=== PATIENT | female | born 1945 | race African-American/Black ===

== ENCOUNTER → 2016-12-15 | Outpatient (CLI) | payer MEDICARE, OTHER ==
[2016-04-18 12:38] VITALS: BP 150/70
[~2016-12-15] MED LIST: AMLO10TA2 PO; ASPI81TA2 PO; ESOM20CA30 PO; GABA-586 PO; LEVO500T38 PO; LISI-338 PO; TRAZ100T12 PO
--- NOTE | 2016-12-15 13:32 | RAD ---
INDICATION: Chronic kidney disease with history of right nephrectomy COMPARISON: 04/14/2016 TECHNIQUE: Grayscale and color ultrasound images obtained of the bilateral kidneys and bladder. FINDINGS: Right Kidney: Removed Left Kidney: 14.3 cm. 17 mm upper pole cyst. Mild distention left renal pelvis. Bladder: No gross abnormality. Abdominal aorta measures up to about 2 cm in visualized portions. Abdominal aorta peak systolic velocity 77 cm/S. Left renal artery peak systolic velocity 105 cm/S with a ratio of 1.4. Vascular flow in the partially visualized left renal vein. IMPRESSION: Mild distention of left renal pelvis without significant hydronephrosis There is a probable cyst within the left kidney.
== END | disposition home or self-care (01) ==
LOC: US 12:02
PROVIDERS: ATTEND Internal Medicine Nephrology
DX: Z90.5 Acquired absence of kidney (principal); I10 Essential (primary) hypertension; E11.9 Type 2 diabetes mellitus without complications; N18.2 Chronic kidney disease, stage 2 (mild)
CPT/HCPCS: 76770

== ENCOUNTER 2017-04-30 10:53 | Observation (INO) | payer OTHER ==
[~2017-04-30] VITALS: Ht 175.3 cm; Wt 91.2 kg
[~2017-04-30 10:53] MED LIST changes: +ASPI-630 PO; -ASPI81TA2 PO; -LEVO500T38 PO; +LEVO500T59 PO
--- NOTE | 2017-04-30 11:17 | PHYS DOC ---
Past Medical History Past Medical History: Diabetes-Type II, Hypertension, Renal Disease Past Surgical History: Other Additional Past Surgical Histo: nephrectomy Alcohol Use: None Drug Use: None Adult General Chief Complaint Chief Complaint: Neck Pain HPI HPI Patient is a 71 year old female who presents with left-sided neck pain. She states that pain started around 4 days ago and then last night got worse. She states it was around her entire collarbone and now is more localized on the left sternocleidomastoid area. She states she got this morning and then she started feeling lightheaded and dizzy. She also is having some discomfort in her right shoulder this been going on for over the last 5-7 days. She denies any chest pain, shortness of breath. She did feel lightheaded and dizzy this morning but denies any passing out or syncopal episodes. Review of Systems Review of Systems Constitutional: Denies fever or chills [] Eyes: Denies change in visual acuity, redness, or eye pain [] HENT: Denies nasal congestion or sore throat [] Respiratory: Denies cough or shortness of breath [] Cardiovascular: No additional information not addressed in HPI [] GI: Denies abdominal pain, nausea, vomiting, bloody stools or diarrhea [] : Denies dysuria or hematuria [] Musculoskeletal: Denies back pain or joint pain [] Integument: Denies rash or skin lesions [] Neurologic: Denies headache, focal weakness or sensory changes [] Endocrine: Denies polyuria or polydipsia [] Current Medications Current Medications Current Medications Medications (Trade) Dose Ordered Sig/[facility] Start Time Stop Time Status Last Admin Dose Admin Aspirin (Carole Aspirin) 325 mg 1X ONCE 04/30/17 14:30 04/30/17 14:31 Allergies Allergies Allergies Coded Allergies Type Severity Reaction Last Updated Verified Penicillins Allergy Intermediate 03/01/16 Yes Physical Exam Physical Exam Constitutional: Well developed, well nourished, no acute distress, non-toxic appearance. [] HENT: Normocephalic, atraumatic, bilateral external ears normal, oropharynx moist, no oral exudates, nose normal. [] Eyes: PERRLA, EOMI, conjunctiva normal, no discharge. [] Neck: Normal range of motion, mild tenderness over the left sternocleidomastoid muscle, no midline tenderness or step-offs noted, supple, no stridor. [] Cardiovascular:Heart rate regular rhythm, no murmur [] Lungs & Thorax: Bilateral breath sounds clear to auscultation [] Abdomen: Bowel sounds normal, soft, no tenderness, no masses, no pulsatile masses. [] Skin: Warm, dry, no erythema, no rash. [] Back: No tenderness, no CVA tenderness. [] Extremities: No tenderness, no cyanosis, no clubbing, ROM intact, no edema. [] Neurologic: Alert and oriented X 3, normal motor function, normal sensory function, no focal deficits noted. [] Psychologic: Affect normal, judgement normal, mood normal. [] Current Patient Data Vital Signs Vital Signs Date Time Temp Pulse Resp B/P (MAP) Pulse Ox O2 Delivery O2 Flow Rate FiO2 04/30/17 11:00 98.1 75 18 134/69 (90) 98 Room Air 98.1 Lab Values Laboratory Tests Test 04/30/17 12:00 04/30/17 13:30 White Blood Count 7.2 x10^3/uL (4.0-11.0) Red Blood Count 4.23 x10^6/uL (3.50-5.40) Hemoglobin 11.7 g/dL (12.0-15.5) L Hematocrit 37.1 % (36.0-47.0) Mean Corpuscular Volume 88 fL (79-100) Mean Corpuscular Hemoglobin 28 pg (25-35) Mean Corpuscular Hemoglobin Concent 32 g/dL (31-37) Red Cell Distribution Width 14.6 % (11.5-14.5) H Platelet Count 175 x10^3/uL (140-400) Neutrophils (%) (Auto) 50 % (31-73) Lymphocytes (%) (Auto) 37 % (24-48) Monocytes (%) (Auto) 7 % (0-9) Eosinophils (%) (Auto) 6 % (0-3) H Basophils (%) (Auto) 1 % (0-3) Neutrophils # (Auto) 3.6 x10^3uL (1.8-7.7) Lymphocytes # (Auto) 2.6 x10^3/uL (1.0-4.8) Monocytes # (Auto) 0.5 x10^3/uL (0.0-1.1) Eosinophils # (Auto) 0.4 x10^3/uL (0.0-0.7) Basophils # (Auto) 0.1 x10^3/uL (0.0-0.2) Prothrombin Time 13.7 SEC (11.7-14.0) Prothrombin Time INR 1.1 (0.8-1.1) Sodium Level 141 mmol/L (136-145) Potassium Level 4.1 mmol/L (3.5-5.1) Chloride Level 107 mmol/L (98-107) Carbon Dioxide Level 24 mmol/L (21-32) Anion Gap 10 (6-14) Blood Urea Nitrogen 16 mg/dL (7-20) Creatinine 1.3 mg/dL (0.6-1.0) H Estimated GFR (Cockcroft-Gault) 48.7 Glucose Level 193 mg/dL (70-99) H Calcium Level 8.8 mg/dL (8.5-10.1) Magnesium Level 2.0 mg/dL (1.8-2.4) Total Bilirubin 0.1 mg/dL (0.2-1.0) L Direct Bilirubin < 0.1 mg/dL (0.0-0.2) Aspartate Amino Transferase (AST) 19 U/L (15-37) Alanine Aminotransferase (ALT) 26 U/L (14-59) Alkaline Phosphatase 148 U/L (46-116) H Creatine Kinase 203 U/L (26-192) H Creatine Kinase MB (Mass) 1.7 ng/mL (0.0-3.6) Creatine Kinase MB Relative Index 0.8 % (0-4) Troponin I Quantitative < 0.017 ng/mL (0.000-0.055) IZ-Lce-U-Type Natriuretic Peptide 76 pg/mL (0-124) Total Protein 7.1 g/dL (6.4-8.2) Albumin 3.5 g/dL (3.4-5.0) Lipase 79 U/L (73-393) Thyroid Stimulating Hormone (TSH) 0.885 uIU/mL (0.358-3.74) Urine Collection Type Unknown Urine Color Yellow Urine Clarity Clear Urine pH 6.0 Urine Specific [place] 1.020 Urine Protein Negative mg/dL (NEG-TRACE) Urine Glucose (UA) 100 mg/dL (NEG) Urine Ketones (Stick) Negative mg/dL (NEG) Urine Blood Negative (NEG) Urine Nitrite Negative (NEG) Urine Bilirubin Negative (NEG) Urine Urobilinogen Dipstick 1.0 mg/dL (0.2 mg/dL) Urine Leukocyte Esterase Negative (NEG) Urine RBC Occ /HPF (0-2) Urine WBC Occ /HPF (0-4) Urine Squamous Epithelial Cells Mod /LPF Urine Bacteria Many /HPF (0-FEW) Urine Mucus Mod /LPF Urine Opiates Screen Neg (NEG) Urine Methadone Screen Neg (NEG) Urine Barbiturates Neg (NEG) Urine Phencyclidine Screen Neg (NEG) Urine Amphetamine/Methamphetamine Neg (NEG) Urine Benzodiazepines Screen Neg (NEG) Urine Cocaine Screen Neg (NEG) Urine Cannabinoids Screen Neg (NEG) Urine Ethyl Alcohol Neg (NEG) Laboratory Tests 04/30/17 12:00 Laboratory Tests 04/30/17 12:00 EKG EKG EKG shows sinus rhythm rate of 64 bpm with T-wave inversions in aVL, V5 V6, no ST elevations appreciated, left axis deviation, QTC 423 ms, as interpreted by me. Radiology/Procedures Radiology/Procedures [facility] [address] [place] [address] IMAGING REPORT Signed PATIENT: ROSIBEL FERREIRA ACCOUNT: [id number] : 1945 LOCATION: ER AGE: 71 SEX: F EXAM STATUS: REG ER ORD. PHYSICIAN: RAMSEY EDWARDS MD REASON: dizziness 16 PROCEDURE: PORTABLE CHEST 1V Indication: Dizziness and pain. Time of exam left 40 7:00 AM Correlation is made with prior study from 04/15/2016. FINDINGS: The heart size is normal. The lungs are clear. No pleural effusion or pneumothorax is identified. The pulmonary vascularity is normal. IMPRESSION: No acute abnormality detected. DICTATED and SIGNED BY: MILLIE DO MD DATE: 04/30/17 1213 CC: RAMSEY EDWARDS MD; NON,STAFF ~ Impressions: Right shoulder/chest pain Dizziness Left-sided neck strain Diabetes Course & Med Decision Making Course & Med Decision Making Pertinent Labs and Imaging studies reviewed. (See chart for details) Patient labs do not show any acute abnormality she does have new T-wave inversions in the lateral leads on her EKG. We'll admit and start aspirin, interim orders with cardiology consultation. His having intermittent dizziness without any vertigo type symptoms. She is able to ambulate without any difficulty. She is agreeable plans in stable condition this time. Dragon Disclaimer Dragon Disclaimer This electronic medical record was generated, in whole or in part, using a voice recognition dictation system. Departure Departure Impression: Primary Impression: Dizziness Disposition: 09 ADMITTED INPATIENT Admitting Physician: Nadia Schwarz Condition: STABLE Referrals: NON,STAFF (PCP) RAMSEY EDWARDS MD Apr 30, 2017 11:16
--- NOTE | 2017-04-30 12:14 | EKG ---
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
--- NOTE | 2017-04-30 12:16 | RAD ---
Indication: Dizziness and pain. Time of exam left 40 7:00 AM Correlation is made with prior study from 04/15/2016. FINDINGS: The heart size is normal. The lungs are clear. No pleural effusion or pneumothorax is identified. The pulmonary vascularity is normal. IMPRESSION: No acute abnormality detected.
[2017-04-30 12:17] LABS: BASO # 0.1 x10^3/uL (0.0-0.2); BASO % 1 % (0-3); EOS % 6 % (0-3); HEMATOCRIT 37.1 % (36.0-47.0); HEMOGLOBIN 11.7 g/dL (12.0-15.5); LYMPH # 2.6 x10^3/uL (1.0-4.8); LYMPH % 37 % (24-48); MEAN CORPUSCULAR HEMOGLOBIN 28 pg (25-35); MEAN CORPUSCULAR HGB CONC 32 g/dL (31-37); MEAN CORPUSCULAR VOLUME 88 fL (79-100); MONO % 7 % (0-9); NEUT % 50 % (31-73); PLATELET COUNT 175 x10^3/uL (140-400); RED BLOOD COUNT 4.23 x10^6/uL (3.50-5.40); RED CELL DISTRIBUTION WIDTH 14.6 % (11.5-14.5); WHITE BLOOD COUNT 7.2 x10^3/uL (4.0-11.0)
[2017-04-30 12:26] LABS: INR 1.1 (0.8-1.1); PROTHROMBIN TIME PATIENT 13.7 SEC (11.7-14.0)
[2017-04-30 12:31] LABS: ANION GAP 10 (6-14); BLOOD UREA NITROGEN 16 mg/dL (7-20); CALCIUM 8.8 mg/dL (8.5-10.1); CARBON DIOXIDE 24 mmol/L (21-32); CHLORIDE 107 mmol/L (98-107); CREATININE 1.3 mg/dL (0.6-1.0); GFR 48.7; GLUCOSE 193 mg/dL (70-99); POTASSIUM 4.1 mmol/L (3.5-5.1); SODIUM 141 mmol/L (136-145)
[2017-04-30 12:38] LABS: ALBUMIN 3.5 g/dL (3.4-5.0); ALK PHOS 148 U/L (46-116); ALT (SGPT) 26 U/L (14-59); AST (SGOT) 19 U/L (15-37); DIRECT BILIRUBIN < 0.1 mg/dL (0.0-0.2); TOTAL BILIRUBIN 0.1 mg/dL (0.2-1.0); TOTAL PROTEIN 7.1 g/dL (6.4-8.2)
[2017-04-30 13:02] LABS: CKMB MASS 1.7 ng/mL (0.0-3.6)
[2017-04-30 13:47] LABS: BILIRUBIN,URINE NEGATIVE (NEG); GLUCOSE,URINE 100 mg/dL (NEG); NITRITE,URINE NEGATIVE (NEG); PROTEIN,URINE NEGATIVE (NEG-TRACE)
[2017-04-30 14:11] LABS: BACTERIA,URINE MANY /HPF (0-FEW); RBC,URINE OCC /HPF (0-2); SQUAMOUS EPITHELIAL CELL,UR MOD /LPF; WBC,URINE OCC /HPF (0-4)
[2017-04-30 14:23] LABS: BARBITURATES NEG (NEG); BENZODIAZEPINES NEG (NEG); CANNABINOIDS NEG (NEG); COCAINE NEG (NEG); METHADONE NEG (NEG); OPIATES NEG (NEG); PHENCYCLIDINE NEG (NEG)
[2017-04-30] MEDS ORDERED: ONDANSETRON PF 4 MG/2 ML VIAL. IV PRN (14:30)
[2017-04-30] MEDS ORDERED: ASPIRIN 325 MG TABLET PO ONE (14:30)
--- NOTE | 2017-04-30 14:56 | PDOC2 ---
DIANNA LUDWIG ROBOTIC WELDER 04/30/17 1456: CARDIAC CONSULT DATE OF CONSULT Date of Consult DATE: 04/30/17 TIME: 14:47 REASON FOR CONSULT Reason for Consult: Chest pain REFERRING PHYSICIAN Referring Physician: Dr. Heredia SOURCE Source: Chart review, Patient HISTORY OF PRESENT ILLNESS HISTORY OF PRESENT ILLNESS This is a pleasant 71 yo female who presented with complaint of left-sided neck pain and right shoulder pain. Patient reports symptoms have been ongoing for the last 4-5 days. Pain so severe it will awaken her from sleep. Describes as throbbing in nature. Worsened significantly by movement. Neck pain radiates upward to the head. Associated with PATRICK. Left shoulder pain seems to radiated down her left arm. This morning, pain much worse and was associated with dizziness, so she came into the ED for further evaluation and treatment. Denies any chest pain, palpitations, SOA, diaphoresis, or n/v. No cardiac history other than hypertension. No previous cardiac workup. Labs noted. Trop negative. EKG shows SR with t-wave inversion of lateral leads suggesting ischemia, which is consistent with study conducted 04/04/16. PAST MEDICAL HISTORY Cardiovascular: HTN Pulmonary: COPD GI: GERD Heme/Onc: No pertinent hx Hepatobiliary: No pertinent hx Psych: No pertinent hx Musculoskeletal: Osteoarthritis Renal/: Renal Ca. (s/p nephrectomy ) Endocrine: Diabetes Dermatology: No pertinent hx PAST SURGICAL HISTORY Past Surgical History: Tubal Ligation, Other (see PMH) FAMILY HISTORY Family History: Diabetes, Hypertension SOCIAL HISTORY Smoke: No ALCOHOL: none Drugs: None Lives: Alone ALLERGIES ALLERGIES: Coded Allergies: Penicillins (Verified Allergy, Intermediate, 03/01/16) ROS Review of System 14 point ROS conducted with pertinent positives noted above in HPI. PHYSICAL EXAM General: Alert, Oriented X3, Cooperative HEENT: Atraumatic, Mucous membr. moist/pink Lungs: Clear to auscultation Heart: Regular rate, Normal S1, Normal S2 Abdomen: No tenderness Extremities: No edema, Normal pulses Skin: No breakdown, No significant lesion Neuro: Normal speech, Sensation intact Psych/Mental Status: Mental status NL, Mood NL MUSCULOSKELETAL: Other (right shoulder joint tenderness. pain with active ROM on neck and right shoulder ) VITALS VITALS Vital Signs Date Time Temp Pulse Resp B/P (MAP) Pulse Ox O2 Delivery O2 Flow Rate FiO2 6/29/17 11:00 98.1 75 18 134/69 (90) 98 Room Air 98.1 LABS Lab: Laboratory Tests Test 04/30/17 12:00 04/30/17 13:30 White Blood Count 7.2 x10^3/uL (4.0-11.0) Red Blood Count 4.23 x10^6/uL (3.50-5.40) Hemoglobin 11.7 g/dL (12.0-15.5) Hematocrit 37.1 % (36.0-47.0) Mean Corpuscular Volume 88 fL (79-100) Mean Corpuscular Hemoglobin 28 pg (25-35) Mean Corpuscular Hemoglobin Concent 32 g/dL (31-37) Red Cell Distribution Width 14.6 % (11.5-14.5) Platelet Count 175 x10^3/uL (140-400) Neutrophils (%) (Auto) 50 % (31-73) Lymphocytes (%) (Auto) 37 % (24-48) Monocytes (%) (Auto) 7 % (0-9) Eosinophils (%) (Auto) 6 % (0-3) Basophils (%) (Auto) 1 % (0-3) Neutrophils # (Auto) 3.6 x10^3uL (1.8-7.7) Lymphocytes # (Auto) 2.6 x10^3/uL (1.0-4.8) Monocytes # (Auto) 0.5 x10^3/uL (0.0-1.1) Eosinophils # (Auto) 0.4 x10^3/uL (0.0-0.7) Basophils # (Auto) 0.1 x10^3/uL (0.0-0.2) Prothrombin Time 13.7 SEC (11.7-14.0) Prothromb Time International Ratio 1.1 (0.8-1.1) Sodium Level 141 mmol/L (136-145) Potassium Level 4.1 mmol/L (3.5-5.1) Chloride Level 107 mmol/L (98-107) Carbon Dioxide Level 24 mmol/L (21-32) Anion Gap 10 (6-14) Blood Urea Nitrogen 16 mg/dL (7-20) Creatinine 1.3 mg/dL (0.6-1.0) Estimated GFR (Cockcroft-Gault) 48.7 Glucose Level 193 mg/dL (70-99) Calcium Level 8.8 mg/dL (8.5-10.1) Magnesium Level 2.0 mg/dL (1.8-2.4) Total Bilirubin 0.1 mg/dL (0.2-1.0) Direct Bilirubin < 0.1 mg/dL (0.0-0.2) Aspartate Amino Transf (AST/SGOT) 19 U/L (15-37) Alanine Aminotransferase (ALT/SGPT) 26 U/L (14-59) Alkaline Phosphatase 148 U/L (46-116) Creatine Kinase 203 U/L (26-192) Creatine Kinase MB (Mass) 1.7 ng/mL (0.0-3.6) Creatine Kinase MB Relative Index 0.8 % (0-4) Troponin I Quantitative < 0.017 ng/mL (0.000-0.055) CI-Phe-D-Type Natriuretic Peptide 76 pg/mL (0-124) Total Protein 7.1 g/dL (6.4-8.2) Albumin 3.5 g/dL (3.4-5.0) Lipase 79 U/L (73-393) Thyroid Stimulating Hormone (TSH) 0.885 uIU/mL (0.358-3.74) Urine Collection Type Unknown Urine Color Yellow Urine Clarity Clear Urine pH 6.0 Urine Specific [place] 1.020 Urine Protein Negative mg/dL (NEG-TRACE) Urine Glucose (UA) 100 mg/dL (NEG) Urine Ketones (Stick) Negative mg/dL (NEG) Urine Blood Negative (NEG) Urine Nitrite Negative (NEG) Urine Bilirubin Negative (NEG) Urine Urobilinogen Dipstick 1.0 mg/dL (0.2 mg/dL) Urine Leukocyte Esterase Negative (NEG) Urine RBC Occ /HPF (0-2) Urine WBC Occ /HPF (0-4) Urine Squamous Epithelial Cells Mod /LPF Urine Bacteria Many /HPF (0-FEW) Urine Mucus Mod /LPF Urine Opiates Screen Neg (NEG) Urine Methadone Screen Neg (NEG) Urine Barbiturates Neg (NEG) Urine Phencyclidine Screen Neg (NEG) Urine Amphetamine/Methamphetamine Neg (NEG) Urine Benzodiazepines Screen Neg (NEG) Urine Cocaine Screen Neg (NEG) Urine Cannabinoids Screen Neg (NEG) Urine Ethyl Alcohol Neg (NEG) ASSESSMENT/PLAN ASSESSMENT/PLAN 1. Chest pain, atypical 2. Neck and right shoulder joint pain 3. Hypertension 4. Diabetes Recommendations Check lipids. Trend enzymes. Doubt ACS Obtain echo to assess LV function Consider further ischemic workup given risk factors of age, hypertension, and DM along with abnormal EKG; possibly as an outpatient Resume home antiHTN therapy. Monitor overnight. Further recommendations pending diagnostics. Problems: ANDERSON RAYGOZA MD 04/30/172025: CARDIAC CONSULT ALLERGIES ALLERGIES: Coded Allergies: Penicillins (Verified Allergy, Intermediate, 03/01/16) ASSESSMENT/PLAN ASSESSMENT/PLAN Pt. seen and examined. 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 Normal cardiac exam. Supportive care. Pls call with questions. Problems: DIANNA LUDWIG APRN Apr 30, 2017 14:56 ANDERSON RAYGOZA MD Apr 30, 2017 20:26
[2017-04-30 16:00] VITALS: BP 142/74
[2017-04-30] MEDS: amLODIPine BESYLATE 10 MG TABLET PO SCH (16:00)
[2017-04-30 19:00] VITALS: BP 105/46
[2017-04-30] MEDS ORDERED: PNEUMOCOCCAL VAX SCREEN BY RX. MC ONE (19:30)
--- NOTE | 2017-04-30 20:21 | PDOC1 ---
History and Physical Date of Admission Date of Admission DATE: 04/30/17 TIME: 20:21 Identification/Chief Complaint Chief Complaint neck pain, dizzy Problems: Source Source: Chart review, Patient History of Present Illness History of Present Illness Ms. Zelaya, is a 71 yo female admit for possible angina. She has acute left- sided neck pain and right shoulder pain. Pain is assoc with dyspnea at time, and pain has worsened over the past few days. Pain now 6/10, better with meds she also complains of some lightheadedness, not dizzy, no vertigo. no travel, no sick contacts initial w./u had EKG with t-wave inversion, similar to previous Past Medical History Cardiovascular: HTN Pulmonary: COPD GI: GERD Heme/Onc: No pertinent hx Hepatobiliary: No pertinent hx Psych: No pertinent hx Musculoskeletal: Osteoarthritis Renal/: Renal Ca. (s/p nephrectomy ) Endocrine: Diabetes Dermatology: No pertinent hx Past Surgical History Past Surgical History: Tubal Ligation, Other (see PMH) Family History Family History: Diabetes, Hypertension Social History Smoke: No ALCOHOL: none Drugs: None Current Problem List Problem List Problems Medical Problems: (1) Dizziness Status: Acute Problems: Current Medications Current Medications Current Medications Aspirin (Carole Aspirin) 325 mg 1X ONCE PO Last administered on 04/30/17 15:25 ; Start 04/30/17 at 14:30; Stop 04/30/17 at 14:45; Status DC Ondansetron HCl (Zofran) 4 mg PRN Q8HRS PRN IV NAUSEA/VOMITING; Start 04/30/17 at 14:30; Stop 05/01/17 at 14:29 Diazepam (Valium) 2.5 mg 1X ONCE IV Last administered on 04/30/17t 15:26; Start 04/30/17 at 15:15; Stop 04/30/17 at 15:16; Status DC Amlodipine Besylate (Norvasc) 10 mg DAILY PO ; Start 04/30/17 at 16:00 Aspirin (Children'S Aspirin) 81 mg DAILY PO ; Start 05/01/17 at 09:00 Lisinopril (Prinivil) 5 mg HS PO ; Start 04/30/17 at 21:00 Pneumococcal Polyvalent Vaccine (Do NOT chart on this placeholder) 1 each 1X ONCE MC ; Start 04/30/17 at 19:30; Stop 04/30/17 at 19:31; Status UNV Active Scripts Active Levaquin (Levofloxacin) 500 Mg Tablet 1 Tab PO DAILY Reported Nexium 24Hr (Esomeprazole Magnesium) 20 Mg Capsule.dr 40 Mg PO DAILY Aspirin 81 Mg Tab.chew 1 Tab PO DAILY Trazodone Hcl 100 Mg Tablet 1 Tab PO PRN QHS PRN Gabapentin 300 Mg Capsule 300 Mg PO TID Lisinopril 5 Mg Tablet 1 Tab PO HS Amlodipine Besylate 10 Mg Tablet 10 Mg PO DAILY Allergies Allergies: Coded Allergies: Penicillins (Verified Allergy, Intermediate, 03/01/16) ROS General: No: Chills, Night Sweats, Fatigue, Malaise, Appetite, Other PSYCHOLOGICAL ROS: No: Anxiety, Behavioral Disorder, Concentration difficultie , Decreased libido, Depression, Disorientation, Hallucinations, Hostility, Irritablity, Memory difficulties, Mood Swings, Obsessive thoughts, Physical abuse, Sexual abuse, Sleep disturbances, Suicidal ideation, Other Eyes: No Blurry vision, No Decreased vision, No Double vision, No Dry eyes, No Excessive tearing, No Eye Pain, No Itchy Eyes, No Loss of vision, No Photophobia , No Scotomata, No Uses contacts, No Uses glasses, No Other HEENT: No: Heacaches, Visual Changes, Hearing change, Nasal congestion, Nasal discharge, Oral lesions, Sinus pain, Sore Throat, Epistaxis, Sneezing, Snoring, Tinnitus, Vertigo, Vocal changes, Other ALLERGY AND IMMUNOLOGY: No: Hives, Insect Bite Sensitivity, Itchy/Watery Eyes, Nasal Congestion, Post Nasal Drip, Seasonal Allergies, Other Respiratory: YES: SOB with excertion, No: Cough, Hemoptysis, Orthopnea, Pleuritic Pain, Shortness of breath, Sputum Changes, Stridor, Tachypnea, Wheezing, Other Cardiovascular: yes Chest Pain, No Palpitations, No Orthopnea, No Paroxysmal Noc. Dyspnea, No Edema, No Lt Headedness, No Other Gastrointestinal: No Nausea, No Vomiting, No Abdominal Pain, No Diarrhea, No Constipation, No Melena, No Hematochezia, No Other Genitourinary: No Dysuria, No Frequency, No Incontinence, No Hematuria, No Retention, No Discharge, No Urgency, No Pain, No Flank Pain, No Other, No , No , No , No , No , No , No Musculoskeletal: Yes Joint Pain, Yes Joint Stiffness, Yes Muscle Pain, Yes Pain In: (neck and shoulder), No Gait Disturbance, No Joint Swelling, No Muscular Weakness, No Swelling In: , No Other Neurological: No Behavorial Changes, No Bowel/Bladder ControlChng, No Confusion , No Dizziness, No Headaches, No Impaired Coord/balance, No Memory Loss, No Numbness/Tingling, No Seizures, No Speech Problems, No Tremors, No Visual Changes, No Weakness, No Other Skin: Yes Dry Skin, No Eczema, No Hair Changes, No Lumps, No Mole Changes, No Mottling, No Nail Changes, No Pruritus, No Rash, No Skin Lesion Changes, No Other, No Acne Physical Exam General: Alert, Oriented X3 HEENT: Atraumatic, PERRLA Lungs: Clear to auscultation Heart: S1S2, RRR Abdomen: Normal bowel sounds, Soft Rectal Exam: not examined Extremities: No clubbing, Normal pulses, Other (pain to palpation right clavicle, right bicep tendon, right shoulder) Skin: No rashes Neuro: Normal speech, Normal tone, Sensation intact Psych/Mental Status: Mental status NL, Mood NL Vitals Vitals Vital Signs Date Time Temp Pulse Resp B/P (MAP) Pulse Ox O2 Delivery O2 Flow Rate FiO2 04/30/17 19:20 Room Air 04/30/17 19:00 98.1 62 16 105/46 (65) 98 98.1 Labs Labs Laboratory Tests Test 04/30/17 12:00 04/30/17 13:30 04/30/17 16:48 04/30/17 18:00 White Blood Count 7.2 x10^3/uL (4.0-11.0) Red Blood Count 4.23 x10^6/uL (3.50-5.40) Hemoglobin 11.7 g/dL (12.0-15.5) Hematocrit 37.1 % (36.0-47.0) Mean Corpuscular Volume 88 fL (79-100) Mean Corpuscular Hemoglobin 28 pg (25-35) Mean Corpuscular Hemoglobin Concent 32 g/dL (31-37) Red Cell Distribution Width 14.6 % (11.5-14.5) Platelet Count 175 x10^3/uL (140-400) Neutrophils (%) (Auto) 50 % (31-73) Lymphocytes (%) (Auto) 37 % (24-48) Monocytes (%) (Auto) 7 % (0-9) Eosinophils (%) (Auto) 6 % (0-3) Basophils (%) (Auto) 1 % (0-3) Neutrophils # (Auto) 3.6 x10^3uL (1.8-7.7) Lymphocytes # (Auto) 2.6 x10^3/uL (1.0-4.8) Monocytes # (Auto) 0.5 x10^3/uL (0.0-1.1) Eosinophils # (Auto) 0.4 x10^3/uL (0.0-0.7) Basophils # (Auto) 0.1 x10^3/uL (0.0-0.2) Prothrombin Time 13.7 SEC (11.7-14.0) Prothromb Time International Ratio 1.1 (0.8-1.1) Sodium Level 141 mmol/L (136-145) Potassium Level 4.1 mmol/L (3.5-5.1) Chloride Level 107 mmol/L (98-107) Carbon Dioxide Level 24 mmol/L (21-32) Anion Gap 10 (6-14) Blood Urea Nitrogen 16 mg/dL (7-20) Creatinine 1.3 mg/dL (0.6-1.0) Estimated GFR (Cockcroft-Gault) 48.7 Glucose Level 193 mg/dL (70-99) Calcium Level 8.8 mg/dL (8.5-10.1) Magnesium Level 2.0 mg/dL (1.8-2.4) Total Bilirubin 0.1 mg/dL (0.2-1.0) Direct Bilirubin < 0.1 mg/dL (0.0-0.2) Aspartate Amino Transf (AST/SGOT) 19 U/L (15-37) Alanine Aminotransferase (ALT/SGPT) 26 U/L (14-59) Alkaline Phosphatase 148 U/L (46-116) Creatine Kinase 203 U/L (26-192) Creatine Kinase MB (Mass) 1.7 ng/mL (0.0-3.6) Creatine Kinase MB Relative Index 0.8 % (0-4) Troponin I Quantitative < 0.017 ng/mL (0.000-0.055) < 0.017 ng/mL (0.000-0.055) BX-Snj-I-Type Natriuretic Peptide 76 pg/mL (0-124) Total Protein 7.1 g/dL (6.4-8.2) Albumin 3.5 g/dL (3.4-5.0) Lipase 79 U/L (73-393) Thyroid Stimulating Hormone (TSH) 0.885 uIU/mL (0.358-3.74) Urine Collection Type Unknown Urine Color Yellow Urine Clarity Clear Urine pH 6.0 Urine Specific Pavilion 1.020 Urine Protein Negative mg/dL (NEG-TRACE) Urine Glucose (UA) 100 mg/dL (NEG) Urine Ketones (Stick) Negative mg/dL (NEG) Urine Blood Negative (NEG) Urine Nitrite Negative (NEG) Urine Bilirubin Negative (NEG) Urine Urobilinogen Dipstick 1.0 mg/dL (0.2 mg/dL) Urine Leukocyte Esterase Negative (NEG) Urine RBC Occ /HPF (0-2) Urine WBC Occ /HPF (0-4) Urine Squamous Epithelial Cells Mod /LPF Urine Bacteria Many /HPF (0-FEW) Urine Mucus Mod /LPF Urine Opiates Screen Neg (NEG) Urine Methadone Screen Neg (NEG) Urine Barbiturates Neg (NEG) Urine Phencyclidine Screen Neg (NEG) Urine Amphetamine/Methamphetamine Neg (NEG) Urine Benzodiazepines Screen Neg (NEG) Urine Cocaine Screen Neg (NEG) Urine Cannabinoids Screen Neg (NEG) Urine Ethyl Alcohol Neg (NEG) Glucose (Fingerstick) 101 mg/dL (70-99) Laboratory Tests Test 04/30/17 12:00 04/30/17 13:30 04/30/17 16:48 04/30/17 18:00 White Blood Count 7.2 x10^3/uL (4.0-11.0) Red Blood Count 4.23 x10^6/uL (3.50-5.40) Hemoglobin 11.7 g/dL (12.0-15.5) Hematocrit 37.1 % (36.0-47.0) Mean Corpuscular Volume 88 fL (79-100) Mean Corpuscular Hemoglobin 28 pg (25-35) Mean Corpuscular Hemoglobin Concent 32 g/dL (31-37) Red Cell Distribution Width 14.6 % (11.5-14.5) Platelet Count 175 x10^3/uL (140-400) Neutrophils (%) (Auto) 50 % (31-73) Lymphocytes (%) (Auto) 37 % (24-48) Monocytes (%) (Auto) 7 % (0-9) Eosinophils (%) (Auto) 6 % (0-3) Basophils (%) (Auto) 1 % (0-3) Neutrophils # (Auto) 3.6 x10^3uL (1.8-7.7) Lymphocytes # (Auto) 2.6 x10^3/uL (1.0-4.8) Monocytes # (Auto) 0.5 x10^3/uL (0.0-1.1) Eosinophils # (Auto) 0.4 x10^3/uL (0.0-0.7) Basophils # (Auto) 0.1 x10^3/uL (0.0-0.2) Prothrombin Time 13.7 SEC (11.7-14.0) Prothromb Time International Ratio 1.1 (0.8-1.1) Sodium Level 141 mmol/L (136-145) Potassium Level 4.1 mmol/L (3.5-5.1) Chloride Level 107 mmol/L (98-107) Carbon Dioxide Level 24 mmol/L (21-32) Anion Gap 10 (6-14) Blood Urea Nitrogen 16 mg/dL (7-20) Creatinine 1.3 mg/dL (0.6-1.0) Estimated GFR (Cockcroft-Gault) 48.7 Glucose Level 193 mg/dL (70-99) Calcium Level 8.8 mg/dL (8.5-10.1) Magnesium Level 2.0 mg/dL (1.8-2.4) Total Bilirubin 0.1 mg/dL (0.2-1.0) Direct Bilirubin < 0.1 mg/dL (0.0-0.2) Aspartate Amino Transf (AST/SGOT) 19 U/L (15-37) Alanine Aminotransferase (ALT/SGPT) 26 U/L (14-59) Alkaline Phosphatase 148 U/L (46-116) Creatine Kinase 203 U/L (26-192) Creatine Kinase MB (Mass) 1.7 ng/mL (0.0-3.6) Creatine Kinase MB Relative Index 0.8 % (0-4) Troponin I Quantitative < 0.017 ng/mL (0.000-0.055) < 0.017 ng/mL (0.000-0.055) DT-Beq-V-Type Natriuretic Peptide 76 pg/mL (0-124) Total Protein 7.1 g/dL (6.4-8.2) Albumin 3.5 g/dL (3.4-5.0) Lipase 79 U/L (73-393) Thyroid Stimulating Hormone (TSH) 0.885 uIU/mL (0.358-3.74) Urine Collection Type Unknown Urine Color Yellow Urine Clarity Clear Urine pH 6.0 Urine Specific Pavilion 1.020 Urine Protein Negative mg/dL (NEG-TRACE) Urine Glucose (UA) 100 mg/dL (NEG) Urine Ketones (Stick) Negative mg/dL (NEG) Urine Blood Negative (NEG) Urine Nitrite Negative (NEG) Urine Bilirubin Negative (NEG) Urine Urobilinogen Dipstick 1.0 mg/dL (0.2 mg/dL) Urine Leukocyte Esterase Negative (NEG) Urine RBC Occ /HPF (0-2) Urine WBC Occ /HPF (0-4) Urine Squamous Epithelial Cells Mod /LPF Urine Bacteria Many /HPF (0-FEW) Urine Mucus Mod /LPF Urine Opiates Screen Neg (NEG) Urine Methadone Screen Neg (NEG) Urine Barbiturates Neg (NEG) Urine Phencyclidine Screen Neg (NEG) Urine Amphetamine/Methamphetamine Neg (NEG) Urine Benzodiazepines Screen Neg (NEG) Urine Cocaine Screen Neg (NEG) Urine Cannabinoids Screen Neg (NEG) Urine Ethyl Alcohol Neg (NEG) Glucose (Fingerstick) 101 mg/dL (70-99) VTE Prophylaxis Ordered VTE Prophylaxis Devices: No VTE Pharmacological Prophylaxi: Yes Assessment/Plan Assessment/Plan anginal equivalent, left neck pain , pain to chest and right shoulder is reproducible dyspnea on exertion, mult cardiac risk factors CV consult, echo, r.o ACS, lipids consult Dr. Garcia for shoulder pain, poss. rotator cuff issue right shoulder CKD 3 hyperglycemia, check A1c, poss Dm2 htn peripheral neuropathy, NOS insomnia, w/o depression RAUDEL VALENZUELA MD Apr 30, 2017 20:21
[2017-04-30] MEDS ORDERED: traZODone 100 MG TABLET. PO PRN (20:30)
[2017-04-30] MEDS ORDERED: LORazepam 0.5 MG TABLET PO PRN (20:45)
[2017-04-30] MEDS ORDERED: ENOXAPARIN 40 MG/0.4 ML SYRINGE. SQ SCH (21:00)
[2017-04-30] MEDS ORDERED: LISINOPRIL 5 MG TABLET. PO SCH (21:00)
[2017-04-30] MEDS: GABAPENTIN 300 MG CAPSULE. PO SCH (21:07)
[2017-04-30 23:00] VITALS: BP 124/67
--- NOTE | 2017-04-30 23:02 | ACF ---
Admission Forms Criteria CHEST PAIN Clinical Indications for Admission to Inpatient Care (Place 'X' for any and all applicable criteria): Admission is indicated for chest pain and ANY ONE of the following(1)(2)(3)(4)(5 ): [X]I. Angina with acute coronary syndrome (Also use Myocardial Infarction or Angina guideline) [ ]II. Hemodynamic instability [ ]III. Angina needing acute intervention as indicated by ALL of the following( 11)(12): [ ]a) Unstable angina is present as indicated by angina that is ANY ONE of the following: [ ]i) New onset [ ]ii) Nocturnal [ ]iii) Prolonged at rest [ ]iv) Progressive [ ]b) Angina warrants acute intervention as indicated by ANY ONE of the following: [ ]i) Recurrent angina (e.g, not responding as previously to treatment) [ ]ii) Angina at rest or with low-level activities despite initial medical therapy [ ]iii) New or presumably new ST-segment depression on ECG [ ]iv) Signs or symptoms of heart failure (eg, dyspnea, pulmonary edema) [ ]v) New or worsening mitral regurgitation [ ]vi) Hemodynamic instability [ ]vii) Dangerous arrhythmia (eg, sustained ventricular tachycardia) [ ]viii) History of percutaneous coronary intervention within 6 months [ ]ix) History of coronary artery bypass graft surgery [ ]x) AMAURI risk score of 2 or greater[A] [ ]xi) History of Diabetes(14) [ ]xii) High-risk cardiac ischemia findings on noninvasive testing (e.g, echocardiogram, treadmill testing, nuclear scan) [ ]xiii) Chronic renal insufficiency (ie, estimated GFR less than 60 mL/min/1.732m) [ ]xiv) Left ventricular ejection fraction less than 40% [ ]IV. Evidence of IA (eg, cardiac biomarkers positive, ST-segment elevation on ECG) also use Myocardial Infarction Criteria Form. [ ]V. Pulmonary edema [ ]. Respiratory distress [ ]VII. Chest pain indicative of serious diagnosis other than coronary artery disease (eg, aortic dissection) [ ]VIII. Contraindications and/or Inappropriate clinical situations for Observational Care in patients with Chest Pain, when ANY ONE of the following is required: [ ]a) Patient with risk factor for pulmonary embolism, acute coronary syndrome and myocardial infarction (18) [ ]b) Patient with Pulmonary embolism require an average LOS of 4.3 days, therefore emergency department observation management is inappropriate 18,23 [ ]c) Painful condition/s in the elderly, have the highest rate of recidivism after emergency department observation management (10.8%) 20,21,22 [ ]d) Elevated cardiac biomarker requires intensive and exhaustive care (19) [ ]IX. General contraindications and/or Inappropriate clinical situations for Observational Care in patients with Chest Pain, when ANY ONE of the following is required: [ ]a) Prediction of prolongation of LOS based on ANY ONE of the following may be considered as a contraindication for observational care 2, 3, 4, 5, 6, 7, 8, 9, 10, 11 [ ]i) Age > 65 yrs. [ ]ii) Patient arriving by ambulance [ ]iii) Patient with high acuity [ ]iv) Patient requiring vital sign monitoring [ ]v) Patient on IV medication [ ]b) Systolic blood pressures 180mmHg 3,12 [ ]c) Patient with altered mental status including delirium and other alteration of consciousness, (3) [ ]d) Patient whose discharge disposition will be to a longterm home or rehabilitation home should not be managed in Emergency Department Observation Unit. CMS rule requires 3 days hospital stay before such placement. 3,13 [ ]e) Patient with failure to thrive due to broad array of etiologies 3,16,17 [ ]f) Inability to ambulate 3,14 Extended stay beyond goal length of stay may be needed for (1)(28): [ ]a) Specific condition diagnosed after evaluation (eg, pulmonary embolism, aortic dissection) [ ]b) Unstable angina [ ]c) Continued suspicion of acute coronary syndrome with inability to complete needed cardiac evaluation (eg, patient clinically unable to undergo stress testing) [ ]d) Myocardial infarction (Contents from ANGINA and CHEST PAIN clinical indications for admission to inpatient care have been integrated in this form) The original [employer] content created by [employer] has been revised. The portions of the content which have been revised are identified through the use of italic text or in bold, and [employer] has neither reviewed nor approved the modified material. All other unmodified content is copyright [employer]. Please see references footnoted in the original [employer] edition 2016 Admission Criteria Met?: Yes CARMELA JIMENEZ Apr 30, 2017 23:02
[2017-05-01 02:32] VITALS: BP 101/42
[2017-05-01 05:11] LABS: BASO # 0.1 x10^3/uL (0.0-0.2); BASO % 1 % (0-3); EOS % 5 % (0-3); HEMOGLOBIN 12.3 g/dL (12.0-15.5); LYMPH # 4.1 x10^3/uL (1.0-4.8); LYMPH % 47 % (24-48); MEAN CORPUSCULAR HEMOGLOBIN 28 pg (25-35); MEAN CORPUSCULAR HGB CONC 31 g/dL (31-37); MEAN CORPUSCULAR VOLUME 89 fL (79-100); MONO % 7 % (0-9); NEUT % 40 % (31-73); PLATELET COUNT 177 x10^3/uL (140-400); RED BLOOD COUNT 4.38 x10^6/uL (3.50-5.40); RED CELL DISTRIBUTION WIDTH 15.1 % (11.5-14.5); WHITE BLOOD COUNT 8.7 x10^3/uL (4.0-11.0)
[2017-05-01 06:01] LABS: CALCIUM 9.2 mg/dL (8.5-10.1); CREATININE 1.2 mg/dL (0.6-1.0); GFR 53.4; POTASSIUM 3.9 mmol/L (3.5-5.1)
[2017-05-01 06:03] LABS: CHOLESTEROL/HDL RATIO 4.2
[2017-05-01 07:00] VITALS: BP 97/35
[2017-05-01] MEDS: ALBUTEROL SULFATE 2.5 MG/3 ML NEBU. NEB PRN ×3 (07:19→16:19)
[2017-05-01] MEDS ORDERED: PANTOPRAZOLE 40 MG TABLET.DR. PO SCH (07:30)
[2017-05-01] MEDS: GABAPENTIN 300 MG CAPSULE. PO SCH ×2 (07:54→14:22)
[2017-05-01] MEDS: amLODIPine BESYLATE 10 MG TABLET PO SCH (07:55)
[2017-05-01] MEDS ORDERED: ASPIRIN CHEWABLE 81 MG TABLET. PO SCH (09:00)
[2017-05-01 09:12] VITALS: BP_SYST 126; BP_SYST 135; BP_DIAS 61; BP_DIAS 63
--- NOTE | 2017-05-01 09:43 | PDOC2 ---
CONSULT Date of Consult Date of Consult DATE: 05/01/17 TIME: :26 Reason for Consult Reason for Consult: Rehab evaluation about neck and shoulder pain. Referring Physician Referring Physician: . Identification/Chief Complaint Chief Complaint Left sided neck pain without any injury since 04/27/2017 without any radiation and dizziness while up. 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 She denies any chronic neck or back pain. She has used heating pad without any help.She lives alone and used a cane prn. Past Medical History Cardiovascular: HTN Pulmonary: COPD GI: GERD Heme/Onc: No pertinent hx Hepatobiliary: No pertinent hx Psych: No pertinent hx Musculoskeletal: Osteoarthritis Renal/: Renal Ca. (s/p nephrectomy ) Endocrine: Diabetes Dermatology: No pertinent hx Past Surgical History Past Surgical History: Tubal Ligation, Other (see PMH) Family History Family History: Diabetes, Hypertension Social History No ALCOHOL: none Drugs: None Lives: Alone Current Problem List Problem List Problems Medical Problems: (1) Dizziness Status: Acute Current Medications Current Medications Current Medications Aspirin (Carole Aspirin) 325 mg 1X ONCE PO Last administered on 04/30/17 15:25 ; Start 04/30/17 at 14:30; Stop 04/30/17 at 14:45; Status DC Ondansetron HCl (Zofran) 4 mg PRN Q8HRS PRN IV NAUSEA/VOMITING; Start 04/30/17 at 14:30; Stop 05/01/17 at 14:29 Diazepam (Valium) 2.5 mg 1X ONCE IV Last administered on 04/30/17 15:26; Start 04/30/17 at 15:15; Stop 04/30/17 at 15:16; Status DC Amlodipine Besylate (Norvasc) 10 mg DAILY PO ; Start 04/30/17 at 16:00 Aspirin (Children'S Aspirin) 81 mg DAILY PO Last administered on 05/01/17 07: 54; Start 05/01/17 at 09:00 Lisinopril (Prinivil) 5 mg HS PO Last administered on 04/30/17 21:07; Start at 21:00 Pneumococcal Polyvalent Vaccine (Do NOT chart on this placeholder) 1 each 1X ONCE MC ; Start 04/30/17 at 19:30; Stop 04/30/17 at 19:31; Status UNV Trazodone HCl (Desyrel) 100 mg PRN QHS PRN PO INSOMNIA Last administered on 21:07; Start 04/30/17 at 20:30 Pantoprazole Sodium (Protonix) 40 mg DAILYAC PO Last administered on 05/01/17 07:54; Start 05/01/17 at 07:30 Gabapentin (Neurontin) 300 mg TID PO Last administered on 05/01/17 07:54; Start 04/30/17 at 21:00 Albuterol Sulfate (Ventolin Neb Soln) 2.5 mg RTQID PRN NEB DYSPNEA Last administered on 05/01/17 07:19; Start 04/30/17 at 20:45 Enoxaparin Sodium (Lovenox Per Pharmacy Prophylaxis Dosing) 1 each PRN DAILY PRN MC SEE COMMENTS; Start 04/30/17 at 20:45 Lorazepam (Ativan) 0.5 mg PRN Q8HRS PRN PO ANXIETY / AGITATION; Start 04/30/17 at 20:45 Enoxaparin Sodium (Lovenox 40mg Syringe) 40 mg Q24H SQ ; Start 04/30/17 at 21:00 Active Scripts Active Levaquin (Levofloxacin) 500 Mg Tablet 1 Tab PO DAILY Reported Nexium 24Hr (Esomeprazole Magnesium) 20 Mg Capsule.dr 40 Mg PO DAILY Aspirin 81 Mg Tab.chew 1 Tab PO DAILY Trazodone Hcl 100 Mg Tablet 1 Tab PO PRN QHS PRN Gabapentin 300 Mg Capsule 300 Mg PO TID Lisinopril 5 Mg Tablet 1 Tab PO HS Amlodipine Besylate 10 Mg Tablet 10 Mg PO DAILY Allergies Allergies: Coded Allergies: Penicillins (Verified Allergy, Intermediate, 03/01/16) ROS Neurological: Yes Numbness/Tingling (she had occasional numbness in her fingers anf feet for a while.) Physical Exam General: Alert, Oriented X3, Cooperative, No acute distress HEENT: PERRLA, Mucous membr. moist/pink Lungs: Clear to auscultation, Normal air movement Heart: Regular rate, Normal S1, Normal S2, No murmurs Abdomen: Normal bowel sounds, Soft, No tenderness, No hepatosplenomegaly, No masses Extremities: No clubbing, No cyanosis, No edema, Normal pulses, No tenderness/ swelling Skin: No rashes, No breakdown Neuro: Normal speech, Strength at 5/5 X4 ext, Normal tone, Sensation intact, Cranial nerves 3-12 NL (she had absent ankle jerks bilaterally.), Other (she also had wide based gait.She c/o dizzy while up but no change with her BP noted with change of posture.) Psych/Mental Status: Mental status NL, Mood NL MUSCULOSKELETAL: Other (she had tenderness to palpation over left sternomastoid muscle and pain on ROM of her neck.) Vitals VITALS Vital Signs Date Time Temp Pulse Resp B/P (MAP) Pulse Ox O2 Delivery O2 Flow Rate FiO2 05/01/17 08:00 Room Air 05/01/17 07:55 59 97/35 05/01/17 07:23 97 05/01/17 07:00 98.5 18 98.5 Labs Labs Laboratory Tests Test 04/30/17 12:00 04/30/17 13:30 04/30/17 16:48 04/30/17 18:00 White Blood Count 7.2 x10^3/uL (4.0-11.0) Red Blood Count 4.23 x10^6/uL (3.50-5.40) Hemoglobin 11.7 g/dL (12.0-15.5) Hematocrit 37.1 % (36.0-47.0) Mean Corpuscular Volume 88 fL (79-100) Mean Corpuscular Hemoglobin 28 pg (25-35) Mean Corpuscular Hemoglobin Concent 32 g/dL (31-37) Red Cell Distribution Width 14.6 % (11.5-14.5) Platelet Count 175 x10^3/uL (140-400) Neutrophils (%) (Auto) 50 % (31-73) Lymphocytes (%) (Auto) 37 % (24-48) Monocytes (%) (Auto) 7 % (0-9) Eosinophils (%) (Auto) 6 % (0-3) Basophils (%) (Auto) 1 % (0-3) Neutrophils # (Auto) 3.6 x10^3uL (1.8-7.7) Lymphocytes # (Auto) 2.6 x10^3/uL (1.0-4.8) Monocytes # (Auto) 0.5 x10^3/uL (0.0-1.1) Eosinophils # (Auto) 0.4 x10^3/uL (0.0-0.7) Basophils # (Auto) 0.1 x10^3/uL (0.0-0.2) Prothrombin Time 13.7 SEC (11.7-14.0) Prothromb Time International Ratio 1.1 (0.8-1.1) Sodium Level 141 mmol/L (136-145) Potassium Level 4.1 mmol/L (3.5-5.1) Chloride Level 107 mmol/L (98-107) Carbon Dioxide Level 24 mmol/L (21-32) Anion Gap 10 (6-14) Blood Urea Nitrogen 16 mg/dL (7-20) Creatinine 1.3 mg/dL (0.6-1.0) Estimated GFR (Cockcroft-Gault) 48.7 Glucose Level 193 mg/dL (70-99) Calcium Level 8.8 mg/dL (8.5-10.1) Magnesium Level 2.0 mg/dL (1.8-2.4) Total Bilirubin 0.1 mg/dL (0.2-1.0) Direct Bilirubin < 0.1 mg/dL (0.0-0.2) Aspartate Amino Transf (AST/SGOT) 19 U/L (15-37) Alanine Aminotransferase (ALT/SGPT) 26 U/L (14-59) Alkaline Phosphatase 148 U/L (46-116) Creatine Kinase 203 U/L (26-192) Creatine Kinase MB (Mass) 1.7 ng/mL (0.0-3.6) Creatine Kinase MB Relative Index 0.8 % (0-4) Troponin I Quantitative < 0.017 ng/mL (0.000-0.055) < 0.017 ng/mL (0.000-0.055) TN-Jog-H-Type Natriuretic Peptide 76 pg/mL (0-124) Total Protein 7.1 g/dL (6.4-8.2) Albumin 3.5 g/dL (3.4-5.0) Lipase 79 U/L (73-393) Thyroid Stimulating Hormone (TSH) 0.885 uIU/mL (0.358-3.74) Urine Collection Type Unknown Urine Color Yellow Urine Clarity Clear Urine pH 6.0 Urine Specific [place] 1.020 Urine Protein Negative mg/dL (NEG-TRACE) Urine Glucose (UA) 100 mg/dL (NEG) Urine Ketones (Stick) Negative mg/dL (NEG) Urine Blood Negative (NEG) Urine Nitrite Negative (NEG) Urine Bilirubin Negative (NEG) Urine Urobilinogen Dipstick 1.0 mg/dL (0.2 mg/dL) Urine Leukocyte Esterase Negative (NEG) Urine RBC Occ /HPF (0-2) Urine WBC Occ /HPF (0-4) Urine Squamous Epithelial Cells Mod /LPF Urine Bacteria Many /HPF (0-FEW) Urine Mucus Mod /LPF Urine Opiates Screen Neg (NEG) Urine Methadone Screen Neg (NEG) Urine Barbiturates Neg (NEG) Urine Phencyclidine Screen Neg (NEG) Urine Amphetamine/Methamphetamine Neg (NEG) Urine Benzodiazepines Screen Neg (NEG) Urine Cocaine Screen Neg (NEG) Urine Cannabinoids Screen Neg (NEG) Urine Ethyl Alcohol Neg (NEG) Glucose (Fingerstick) 101 mg/dL (70-99) Test 04/30/17 20:53 05/01/17 02:30 05/01/17 06:58 Glucose (Fingerstick) 193 mg/dL (70-99) 115 mg/dL (70-99) White Blood Count 8.7 x10^3/uL (4.0-11.0) Red Blood Count 4.38 x10^6/uL (3.50-5.40) Hemoglobin 12.3 g/dL (12.0-15.5) Hematocrit 39.0 % (36.0-47.0) Mean Corpuscular Volume 89 fL (79-100) Mean Corpuscular Hemoglobin 28 pg (25-35) Mean Corpuscular Hemoglobin Concent 31 g/dL (31-37) Red Cell Distribution Width 15.1 % (11.5-14.5) Platelet Count 177 x10^3/uL (140-400) Neutrophils (%) (Auto) 40 % (31-73) Lymphocytes (%) (Auto) 47 % (24-48) Monocytes (%) (Auto) 7 % (0-9) Eosinophils (%) (Auto) 5 % (0-3) Basophils (%) (Auto) 1 % (0-3) Neutrophils # (Auto) 3.5 x10^3uL (1.8-7.7) Lymphocytes # (Auto) 4.1 x10^3/uL (1.0-4.8) Monocytes # (Auto) 0.6 x10^3/uL (0.0-1.1) Eosinophils # (Auto) 0.4 x10^3/uL (0.0-0.7) Basophils # (Auto) 0.1 x10^3/uL (0.0-0.2) Sodium Level 144 mmol/L (136-145) Potassium Level 3.9 mmol/L (3.5-5.1) Chloride Level 107 mmol/L (98-107) Carbon Dioxide Level 28 mmol/L (21-32) Anion Gap 9 (6-14) Blood Urea Nitrogen 15 mg/dL (7-20) Creatinine 1.2 mg/dL (0.6-1.0) Estimated GFR (Cockcroft-Gault) 53.4 Glucose Level 97 mg/dL (70-99) Calcium Level 9.2 mg/dL (8.5-10.1) Troponin I Quantitative < 0.017 ng/mL (0.000-0.055) Triglycerides Level 126 mg/dL (0-150) Cholesterol Level 189 mg/dL (0-200) LDL Cholesterol, Calculated 119 mg/dL (0-100) VLDL Cholesterol, Calculated 25 mg/dL (0-40) Non-HDL Cholesterol Calculated 144 mg/dL (0-129) HDL Cholesterol 45 mg/dL (40-60) Cholesterol/HDL Ratio 4.2 Laboratory Tests Test 04/30/17 12:00 04/30/17 13:30 04/30/17 16:48 04/30/17 18:00 White Blood Count 7.2 x10^3/uL (4.0-11.0) Red Blood Count 4.23 x10^6/uL (3.50-5.40) Hemoglobin 11.7 g/dL (12.0-15.5) Hematocrit 37.1 % (36.0-47.0) Mean Corpuscular Volume 88 fL (79-100) Mean Corpuscular Hemoglobin 28 pg (25-35) Mean Corpuscular Hemoglobin Concent 32 g/dL (31-37) Red Cell Distribution Width 14.6 % (11.5-14.5) Platelet Count 175 x10^3/uL (140-400) Neutrophils (%) (Auto) 50 % (31-73) Lymphocytes (%) (Auto) 37 % (24-48) Monocytes (%) (Auto) 7 % (0-9) Eosinophils (%) (Auto) 6 % (0-3) Basophils (%) (Auto) 1 % (0-3) Neutrophils # (Auto) 3.6 x10^3uL (1.8-7.7) Lymphocytes # (Auto) 2.6 x10^3/uL (1.0-4.8) Monocytes # (Auto) 0.5 x10^3/uL (0.0-1.1) Eosinophils # (Auto) 0.4 x10^3/uL (0.0-0.7) Basophils # (Auto) 0.1 x10^3/uL (0.0-0.2) Prothrombin Time 13.7 SEC (11.7-14.0) Prothromb Time International Ratio 1.1 (0.8-1.1) Sodium Level 141 mmol/L (136-145) Potassium Level 4.1 mmol/L (3.5-5.1) Chloride Level 107 mmol/L (98-107) Carbon Dioxide Level 24 mmol/L (21-32) Anion Gap 10 (6-14) Blood Urea Nitrogen 16 mg/dL (7-20) Creatinine 1.3 mg/dL (0.6-1.0) Estimated GFR (Cockcroft-Gault) 48.7 Glucose Level 193 mg/dL (70-99) Calcium Level 8.8 mg/dL (8.5-10.1) Magnesium Level 2.0 mg/dL (1.8-2.4) Total Bilirubin 0.1 mg/dL (0.2-1.0) Direct Bilirubin < 0.1 mg/dL (0.0-0.2) Aspartate Amino Transf (AST/SGOT) 19 U/L (15-37) Alanine Aminotransferase (ALT/SGPT) 26 U/L (14-59) Alkaline Phosphatase 148 U/L (46-116) Creatine Kinase 203 U/L (26-192) Creatine Kinase MB (Mass) 1.7 ng/mL (0.0-3.6) Creatine Kinase MB Relative Index 0.8 % (0-4) Troponin I Quantitative < 0.017 ng/mL (0.000-0.055) < 0.017 ng/mL (0.000-0.055) KM-Lmu-P-Type Natriuretic Peptide 76 pg/mL (0-124) Total Protein 7.1 g/dL (6.4-8.2) Albumin 3.5 g/dL (3.4-5.0) Lipase 79 U/L (73-393) Thyroid Stimulating Hormone (TSH) 0.885 uIU/mL (0.358-3.74) Urine Collection Type Unknown Urine Color Yellow Urine Clarity Clear Urine pH 6.0 Urine Specific [place] 1.020 Urine Protein Negative mg/dL (NEG-TRACE) Urine Glucose (UA) 100 mg/dL (NEG) Urine Ketones (Stick) Negative mg/dL (NEG) Urine Blood Negative (NEG) Urine Nitrite Negative (NEG) Urine Bilirubin Negative (NEG) Urine Urobilinogen Dipstick 1.0 mg/dL (0.2 mg/dL) Urine Leukocyte Esterase Negative (NEG) Urine RBC Occ /HPF (0-2) Urine WBC Occ /HPF (0-4) Urine Squamous Epithelial Cells Mod /LPF Urine Bacteria Many /HPF (0-FEW) Urine Mucus Mod /LPF Urine Opiates Screen Neg (NEG) Urine Methadone Screen Neg (NEG) Urine Barbiturates Neg (NEG) Urine Phencyclidine Screen Neg (NEG) Urine Amphetamine/Methamphetamine Neg (NEG) Urine Benzodiazepines Screen Neg (NEG) Urine Cocaine Screen Neg (NEG) Urine Cannabinoids Screen Neg (NEG) Urine Ethyl Alcohol Neg (NEG) Glucose (Fingerstick) 101 mg/dL (70-99) Test 04/30/17 20:53 05/01/17 02:30 05/01/17 06:58 Glucose (Fingerstick) 193 mg/dL (70-99) 115 mg/dL (70-99) White Blood Count 8.7 x10^3/uL (4.0-11.0) Red Blood Count 4.38 x10^6/uL (3.50-5.40) Hemoglobin 12.3 g/dL (12.0-15.5) Hematocrit 39.0 % (36.0-47.0) Mean Corpuscular Volume 89 fL (79-100) Mean Corpuscular Hemoglobin 28 pg (25-35) Mean Corpuscular Hemoglobin Concent 31 g/dL (31-37) Red Cell Distribution Width 15.1 % (11.5-14.5) Platelet Count 177 x10^3/uL (140-400) Neutrophils (%) (Auto) 40 % (31-73) Lymphocytes (%) (Auto) 47 % (24-48) Monocytes (%) (Auto) 7 % (0-9) Eosinophils (%) (Auto) 5 % (0-3) Basophils (%) (Auto) 1 % (0-3) Neutrophils # (Auto) 3.5 x10^3uL (1.8-7.7) Lymphocytes # (Auto) 4.1 x10^3/uL (1.0-4.8) Monocytes # (Auto) 0.6 x10^3/uL (0.0-1.1) Eosinophils # (Auto) 0.4 x10^3/uL (0.0-0.7) Basophils # (Auto) 0.1 x10^3/uL (0.0-0.2) Sodium Level 144 mmol/L (136-145) Potassium Level 3.9 mmol/L (3.5-5.1) Chloride Level 107 mmol/L (98-107) Carbon Dioxide Level 28 mmol/L (21-32) Anion Gap 9 (6-14) Blood Urea Nitrogen 15 mg/dL (7-20) Creatinine 1.2 mg/dL (0.6-1.0) Estimated GFR (Cockcroft-Gault) 53.4 Glucose Level 97 mg/dL (70-99) Calcium Level 9.2 mg/dL (8.5-10.1) Troponin I Quantitative < 0.017 ng/mL (0.000-0.055) Triglycerides Level 126 mg/dL (0-150) Cholesterol Level 189 mg/dL (0-200) LDL Cholesterol, Calculated 119 mg/dL (0-100) VLDL Cholesterol, Calculated 25 mg/dL (0-40) Non-HDL Cholesterol Calculated 144 mg/dL (0-129) HDL Cholesterol 45 mg/dL (40-60) Cholesterol/HDL Ratio 4.2 Assessment/Plan Assessment/Plan Left sternomastoid muscle strain,subacute;DM with peripheral neuropathy,HTN and dizziness. To ask physical therapy to see her and o get her roller walker for use while up and x-ray cervical spine. SERENE DAY MD May 01, 2017 09:43
[2017-05-01] MEDS ORDERED: MECLIZINE HCL 12.5 MG TABLET. PO PRN (09:45)
[2017-05-01] MEDS ORDERED: MECL12.52 PO (10:32)
--- NOTE | 2017-05-01 10:41 | RAD ---
Indication: Neck pain and dizziness. Time of exam 10:21 AM Curvature and alignment is normal. There is osseous fusion between the C5 and C6 vertebral bodies. There is C6-7 degenerative disc disease as well as C4-5 degenerative disc disease with mild disc space narrowing and marginal spurring. The odontoid is intact. The prevertebral tissues are normal. Impression: Cervical fusion and cervical spondylosis. No acute bony abnormality is detected.
[2017-05-01 11:00] VITALS: BP 130/64
--- NOTE | 2017-05-01 11:58 | PDOC3 ---
Discharge Summary [facility] Date of Admission: Apr 30, 2017 Discharge Date: May 01, 2017 Admitting Diagnosis left neck pain , pain to chest and right shoulder is reproducible, 2/2 muscular/skeletal pain lightheaded dyspnea on exertion CKD 3 hyperglycemia htn peripheral neuropathy, NOS insomnia, w/o depression Problems: Final Diagnosis CONSULTS card dr. Garcia Brief Hospital Course Ms. Zelaya, is a 71 yo female admit for possible angina. She has acute left- sided neck pain and right shoulder pain. Pain is assoc with dyspnea at time, and pain has worsened over the past few days. Pain now 6/10, better with meds she also complains of some lightheadedness, not dizzy, no vertigo. no travel, no sick contacts initial w./u had EKG with t-wave inversion, similar to previous pt feels better today, would like to go home when dizzy better. NECK XR no acute changes. neg orthostatic hypotension. dc time 35min, meclazine prn. General: Alert, Oriented X3 HEENT: Atraumatic, PERRLA Lungs: Clear to auscultation Heart: S1S2, RRR Abdomen: Normal bowel sounds, Soft Rectal Exam: not examined Extremities: No clubbing, Normal pulses, Other (pain to palpation right clavicle, right bicep tendon, right shoulder) Skin: No rashes Neuro: Normal speech, Normal tone, Sensation intact Psych/Mental Status: Mental status NL, Mood NL Patient History: FH: cancer 33 FATHER Family history: Diabetes mellitus (situation) 33 FATHER G8 SON G8 SON G8 SON G8 SON G8 SON G8 SON G8 SON G8 SON Problems: Disposition home CONDITION AT DISCHARGE: Improved, Stable Diet regular Scheduled Aspirin (Aspirin), 1 TAB PO DAILY, (Reported) Esomeprazole Magnesium (Nexium 24Hr), 40 MG PO DAILY, (Reported) Gabapentin (Gabapentin), 300 MG PO TID, (Reported) Lisinopril (Lisinopril), 1 TAB PO HS, (Reported) Scheduled PRN Meclizine Hcl (Meclizine Hcl), 12.5 MG PO PRN Q6HRS PRN for DIZZINESS Trazodone Hcl (Trazodone Hcl), 1 TAB PO PRN QHS PRN for INSOMNIA, (Reported) Discontinued Medications Amlodipine Besylate (Amlodipine Besylate), 10 MG PO DAILY, (Reported) Levofloxacin (Levaquin), 1 TAB PO DAILY Follow Up pcp in 2 weeks SAMANTHA DENG MD May 01, 2017 11:58
--- NOTE | 2017-05-01 14:38 | CARD ---
APPROVED REPORT EXAM: Two-dimensional and M-mode echocardiogram with Doppler and color Doppler. Other Information Quality : GoodHR: 75bpm Rhythm : NSR INDICATION Chest Pain 2D DIMENSIONS RVDd3.2 (2.9-3.5cm)Left Atrium(2D)3.9 (1.6-4.0cm) IVSd1.0 (0.7-1.1cm)LVDd4.0 (3.9-5.9cm) LVOT Diameter2.4 (1.8-2.4cm)PWd1.0 (0.7-1.1cm) LVDs2.6 (2.5-4.0cm)FS (%) 36.0 % SV47.7 mlLVEF(%)66.1 (>50%) Aortic Valve AoV Peak Goldy.171.1cm/sAoV VTI31.7cm AO Peak GR.11.7mmHgLVOT Peak Goldy.104.6cm/s LVOT VTI 21.39cmAO Mean GR.6mmHg BRITTANY (VMAX)1.37cg5IBJ (VTI)2.95cm2 Mitral Valve MV E Wjsmlsjt58.8cm/sMV DECEL [id number] MV A Zdnxkhes494.7cm/sMV E Mean Gr.2mmHg MV [id number]/A Ratio0.5 MV A [id number] (PHT)2.50cm2 TDI E/Lateral E'5.3E/Medial E'9.1 Pulmonary Valve PV Peak Irkmwddx672.9cm/sPV Peak Grad.5mmHg Pulmonary Vein PVa [id number] LEFT VENTRICLE The left ventricle is normal size. There is mild concentric left ventricular hypertrophy. The left ve ntricular systolic function is normal and the ejection fraction is within normal range. The Ejection Fraction is 60-65%. There is normal LV segmental wall motion. Transmitral Doppler flow pattern is Gra de I-abnormal relaxation pattern. RIGHT VENTRICLE The right ventricle is normal size. There is normal right ventricular wall thickness. The right ventr icular systolic function is normal. ATRIA The left atrium is mildly dilated. The right atrium size is normal. The interatrial septum is intact with no evidence for an atrial septal defect or patent foramen ovale as noted on 2-D or Doppler imagi ng. AORTIC VALVE The aortic valve is mildly thickened. The aortic valve is trileaflet. Doppler and Color Flow revealed no significant aortic regurgitation. There is no significant aortic valvular stenosis. MITRAL VALVE The mitral valve leaflets are mildly thickened. There is no evidence of mitral valve prolapse. There is no mitral valve stenosis. Doppler and Color Flow revealed mild mitral regurgitation. TRICUSPID VALVE Doppler and Color Flow revealed mild tricuspid regurgitation. The pulmonary artery systolic pressure is estimated at 24 mmHg. There is no pulmonary hypertension. PULMONIC VALVE Doppler and Color Flow revealed mild pulmonic valvular regurgitation. There is no pulmonic valvular s tenosis. GREAT VESSELS The aortic root is normal in size. The ascending aorta is normal in size. The IVC is normal in size a nd collapses >50% with inspiration. PERICARDIAL EFFUSION There is no evidence of significant pericardial effusion. Critical Notification Critical Value: No <Conclusion> The left ventricular systolic function is normal and the ejection fraction is within normal range. Th e Ejection Fraction is 60-65%. There is normal LV segmental wall motion.
[2017-05-01 15:00] VITALS: BP 138/69
[2017-05-01] MEDS ORDERED: diazePAM 5 MG TABLET PO SCH (21:00)
== END 2017-05-01 18:27 | disposition home or self-care (01) ==
LOC: ER 10:53 → 6 SOUTH 14:00
PROVIDERS: ADMIT Internal Medicine; ATTEND Internal Medicine
DX: M54.2 Cervicalgia (principal); E11.22 Type 2 diabetes mellitus with diabetic chronic kidney disease; I12.9 Hypertensive chronic kidney disease with stage 1 through stage 4 chronic kidney disease, or unspecified chronic kidney disease; N18.3 Chronic kidney disease, stage 3 (moderate); E11.65 Type 2 diabetes mellitus with hyperglycemia; G47.00 Insomnia, unspecified; E11.42 Type 2 diabetes mellitus with diabetic polyneuropathy; J44.9 Chronic obstructive pulmonary disease, unspecified; K21.9 Gastro-esophageal reflux disease without esophagitis; M19.90 Unspecified osteoarthritis, unspecified site
CPT/HCPCS: 36415; 71010; 72040; 80048; 80061; 80076; 81001; 82553; 82962; 83036; 83690; 83735; 83880; 84443; 84484; 85027; 85610; 87086; 93005; 93306; 94250; 94640; 94760; 96374; 96375; 97161; 99285; G0378; G0481; J2405; J3360; G0379; J7613

== ENCOUNTER 2017-07-01 21:24 | Emergency (ER) | payer OTHER ==
[~2017-07-01] VITALS: Ht 175.3 cm; Wt 94.3 kg
[~2017-07-01 21:24] MED LIST changes: +MECL12.52 PO
[2017-07-01 22:56] LABS: BASO # 0.1 x10^3/uL (0.0-0.2); BASO % 1 % (0-3); EOS % 3 % (0-3); HEMATOCRIT 34.7 % (36.0-47.0); HEMOGLOBIN 11.2 g/dL (12.0-15.5); LYMPH # 3.2 x10^3/uL (1.0-4.8); LYMPH % 29 % (24-48); MEAN CORPUSCULAR HEMOGLOBIN 28 pg (25-35); MEAN CORPUSCULAR HGB CONC 32 g/dL (31-37); MEAN CORPUSCULAR VOLUME 87 fL (79-100); MONO % 6 % (0-9); NEUT % 61 % (31-73); PLATELET COUNT 182 x10^3/uL (140-400); RED BLOOD COUNT 3.97 x10^6/uL (3.50-5.40)
[2017-07-01] MEDS ORDERED: methylPREDNISolone SOD SUCC PF 125 MG/2 ML VIAL. IV ONE (23:00)
[2017-07-01] MEDS ORDERED: IV NORMAL SALINE 1000ML BAG 1,000 ML IV SCH (23:00)
[2017-07-01] MEDS ORDERED: IPRATRPIUM/ALBUTEROL 0.5/2.5MG 3 ML NEBU. NEB ONE (23:00)
[2017-07-01 23:03] LABS: CALCIUM 8.9 mg/dL (8.5-10.1); CREATININE 1.4 mg/dL (0.6-1.0); GFR 44.7; POTASSIUM 3.6 mmol/L (3.5-5.1)
--- NOTE | 2017-07-01 23:52 | PHYS DOC ---
Past Medical History Past Medical History: Bronchitis, COPD, Diabetes-Type II, Hypertension, Renal Disease Past Surgical History: Other Additional Past Surgical Histo: R nephrectomy Alcohol Use: Rarely Drug Use: None Adult General Chief Complaint Chief Complaint: Congestion HPI HPI 71-year-old female with a history of COPD presumably from occupational exposure , never smoked, now presents to the emergency department complaining of dry cough 5 days. Patient states the cough is persistent and sometimes unrelenting. Sometimes she has trouble breathing and because the cough is so vigorous. She sore from coughing but denies pleuritic pain. No exertional chest pain. Denies fevers chills sweats or shaking chills. Patient states she's never had any productive cough at any time. She has not seen a doctor for this illness. The complaints Review of Systems Review of Systems Constitutional: Denies fever or chills [] Eyes: Denies change in visual acuity, redness, or eye pain [] HENT: Denies nasal congestion or sore throat [] Respiratory: Denies cough or shortness of breath [] Cardiovascular: No additional information not addressed in HPI [] GI: Denies abdominal pain, nausea, vomiting, bloody stools or diarrhea [] : Denies dysuria or hematuria [] Musculoskeletal: Denies back pain or joint pain [] Integument: Denies rash or skin lesions [] Neurologic: Denies headache, focal weakness or sensory changes [] Endocrine: Denies polyuria or polydipsia [] Current Medications Current Medications Current Medications Medications (Trade) Dose Ordered Sig/Amberly Start Time Stop Time Status Last Admin Dose Admin Acetaminophen/ Hydrocodone Bitart (Lortab 5/325) 1 tab 1X ONCE 07/02/17 00:45 07/02/17 00:46 UNV 07/02/17 00:43 1 TAB Albuterol/ Ipratropium (Duoneb) 3 ml 1X ONCE 07/01/17 23:00 07/01/17 23:01 DC 07/01/17 23:07 3 ML Azithromycin (Zithromax) 250 mg 1X ONCE 07/02/17 00:45 07/02/17 00:46 UNV 07/02/17 00:42 250 MG Benzonatate (Tessalon Perle) 100 mg 1X ONCE 07/02/17 00:45 07/02/17 00:46 UNV 07/02/17 00:42 100 MG Methylprednisolone Sodium Succinate (SOLU-Medrol 125MG VIAL) 125 mg 1X ONCE 07/01/17 23:00 07/01/17 23:01 DC 07/01/17 23:00 125 MG Sodium Chloride 1,000 ml @ 999 mls/hr Q1H1M 07/01/17 23:00 07/02/17 00:00 DC 07/01/17 23:00 999 MLS/HR Allergies Allergies Allergies Coded Allergies Type Severity Reaction Last Updated Verified Penicillins Allergy Intermediate 03/01/16 Yes Physical Exam Physical Exam Well-appearing patient no acute distress scattered rhonchi with mild prolonged expirations bilateral no chava wheezes. Lung sounds symmetric with normal respiratory rate of 16 and pulse ox 96% on room air. Constitutional: Well developed, well nourished, no acute distress, non-toxic appearance. [] HENT: Normocephalic, atraumatic, bilateral external ears normal, oropharynx moist, no oral exudates, nose normal. [] Eyes: PERRLA, EOMI, conjunctiva normal, no discharge. [] Neck: Normal range of motion, no tenderness, supple, no stridor. [] Cardiovascular:Heart rate regular rhythm, no murmur [] Lungs & Thorax: Bilateral breath sounds as above Abdomen: Bowel sounds normal, soft, no tenderness, no masses, no pulsatile masses. [] Skin: Warm, dry, no erythema, no rash. [] Back: No tenderness, no CVA tenderness. [] Extremities: No tenderness, no cyanosis, no clubbing, ROM intact, no edema. [] Neurologic: Alert and oriented X 3, normal motor function, normal sensory function, no focal deficits noted. [] Psychologic: Affect normal, judgement normal, mood normal. [] Current Patient Data Vital Signs Vital Signs Date Time Temp Pulse Resp B/P (MAP) Pulse Ox O2 Delivery O2 Flow Rate FiO2 07/02/17 00:43 16 98 07/01/17 23:02 Room Air 07/01/17 21:50 98.5 90 148/70 (96) 98.5 Lab Values Laboratory Tests Test 07/01/17 22:45 White Blood Count 11.0 x10^3/uL (4.0-11.0) Red Blood Count 3.97 x10^6/uL (3.50-5.40) Hemoglobin 11.2 g/dL (12.0-15.5) L Hematocrit 34.7 % (36.0-47.0) L Mean Corpuscular Volume 87 fL (79-100) Mean Corpuscular Hemoglobin 28 pg (25-35) Mean Corpuscular Hemoglobin Concent 32 g/dL (31-37) Red Cell Distribution Width 15.0 % (11.5-14.5) H Platelet Count 182 x10^3/uL (140-400) Neutrophils (%) (Auto) 61 % (31-73) Lymphocytes (%) (Auto) 29 % (24-48) Monocytes (%) (Auto) 6 % (0-9) Eosinophils (%) (Auto) 3 % (0-3) Basophils (%) (Auto) 1 % (0-3) Neutrophils # (Auto) 6.7 x10^3uL (1.8-7.7) Lymphocytes # (Auto) 3.2 x10^3/uL (1.0-4.8) Monocytes # (Auto) 0.6 x10^3/uL (0.0-1.1) Eosinophils # (Auto) 0.4 x10^3/uL (0.0-0.7) Basophils # (Auto) 0.1 x10^3/uL (0.0-0.2) Sodium Level 142 mmol/L (136-145) Potassium Level 3.6 mmol/L (3.5-5.1) Chloride Level 106 mmol/L (98-107) Carbon Dioxide Level 27 mmol/L (21-32) Anion Gap 9 (6-14) Blood Urea Nitrogen 14 mg/dL (7-20) Creatinine 1.4 mg/dL (0.6-1.0) H Estimated GFR (Cockcroft-Gault) 44.7 Glucose Level 191 mg/dL (70-99) H Calcium Level 8.9 mg/dL (8.5-10.1) Troponin I Quantitative < 0.017 ng/mL (0.000-0.055) XY-Xoa-C-Type Natriuretic Peptide 57 pg/mL (0-124) Laboratory Tests 07/01/17 22:45 Laboratory Tests 07/01/17 22:45 EKG EKG Normal sinus rhythm at 84 normal axis no STEMI interpreted by me Radiology/Procedures Radiology/Procedures Chest x-ray no acute disease interpreted by me [] Course & Med Decision Making Course & Med Decision Making Pertinent Labs and Imaging studies reviewed. (See chart for details) Signs and symptoms consistent with suspected atypical pneumonia versus mild pertussis in a patient who has not had a recent tetanus and his immunity is certain to have waned chronically. Patient has normal respiratory rate and pulse ox. She has some mild manifestations of COPD and has a history of the same from prior occupational exposure. Chest x-ray is unremarkable and her remainder of workup with mild incidental findings of anemia renal insufficiency and hyperglycemia. Patient stable on multiple re-evaluations. Zithromax prescribed as well as Tessalon [place] as needed for cough. Further workup or treatment indicated. Patient agrees with outpatient follow-up. Patient aware to follow up with PCP in one to 2 days and return immediately for new severe worsening symptoms [] Dragon Disclaimer Dragon Disclaimer This electronic medical record was generated, in whole or in part, using a voice recognition dictation system. Departure Departure Impression: Primary Impression: Atypical pneumonia Additional Impression: Cough Disposition: 01 HOME, SELF-CARE Referrals: NON,STAFF (PCP) Additional Instructions: Her symptoms and history suggest that you have atypical pneumonia or walking pneumonia. This is a lung infection which does not make the patient profoundly ill however it creates a persistent dry cough that won't go away without specific antibiotic treatment. Finish Zithromax as prescribed starting tomorrow 2 pills the first day and one pill a day for 4 more days. Take Tessalon [place] 3 times a day as needed for cough. Use Mucinex DM [id number] cough medicine which will also help break up mucus. You have some incidental findings today such as mild anemia with your hemoglobin 11.2, mild renal insufficiency with your creatinine 1.4 and hyperglycemia with blood glucose 191. Follow-up with your doctor to discuss these results and to arrange further workup and treatment as needed. Be sure to remain well hydrated by drinking plenty of fluids and follow-up with your doctor in the next 1-2 days. Return immediately for new severe or worsening symptoms. Scripts Azithromycin (AZITHROMYCIN TABLET) 250 Mg Tablet 1 PKG PO UD, #6 TAB Take 2 pills the first day and one pill a day for the following 4 days Prov: ILENE MAHAN MD 07/02/17 Benzonatate (TESSALON PERLE) 100 Mg Capsule 2 CAP PO TID, #42 CAP Prov: ILENE MAHAN MD 07/02/17 Hydrocodone/Apap 5-325 (NORCO 5-325 TABLET) 1 Each Tablet 1 TAB PO PRN Q6HRS Y for COUGH, #14 TAB 0 Refills Prov: ILENE MAHAN MD 07/02/17 Problem Qualifiers ILENE MAHAN MD Jul 01, 2017 23:52
[2017-07-02] MEDS ORDERED: BENZ100C PO (00:13)
[2017-07-02] MEDS ORDERED: HYDR-971 PO (00:13)
[2017-07-02] MEDS ORDERED: AZIT250T6 PO (00:13)
[2017-07-02] MEDS ORDERED: BENZONATATE 100 MG CAPSULE. PO ONE ×2 (00:24→00:45)
[2017-07-02] MEDS ORDERED: AZITHROMYCIN 250 MG TABLET. ONE (00:25)
[2017-07-02] MEDS ORDERED: HYDROcodone/APAP 5/325MG 1 TAB TABLET ONE (00:25)
[2017-07-02] MEDS ORDERED: HYDROcodone/APAP 5/325MG 1 TAB TABLET PO ONE (00:45)
[2017-07-02] MEDS ORDERED: AZITHROMYCIN 250 MG TABLET. PO ONE (00:45)
[2017-07-02 00:51] VITALS: BP 134/78
--- NOTE | 2017-07-02 07:19 | EKG ---
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
--- NOTE | 2017-07-02 07:39 | RAD ---
Exam performed: One view chest. Indication: medical workup , cough for 4 days Date of Service: 07/02/2017 12:32 AM Comparison: 04/30/17. Single AP upright portable view chest findings: Cardiomediastinal silhouette is within upper limits of normal. Ectatic tortuous aorta. No acute infiltrates, effusion or pneumothorax is detected. The bony structures are normal. Impression: No acute cardiopulmonary process is detected.
== END 2017-07-02 00:40 | disposition home or self-care (01) ==
LOC: ER 21:24
DX: J18.9 Pneumonia, unspecified organism (principal); E11.9 Type 2 diabetes mellitus without complications; I10 Essential (primary) hypertension; J44.0 Chronic obstructive pulmonary disease with (acute) lower respiratory infection; N28.9 Disorder of kidney and ureter, unspecified; Z88.0 Allergy status to penicillin
CPT/HCPCS: 36415; 71010; 80048; 83880; 84484; 85025; 93005; 94250; 94640; 96361; 96374; 99285; J2930; J7030; J7620; Q0144